=== PATIENT | female | born 1995 | race American Indian/Alaskan Native ===

== ENCOUNTER 2017-02-12 20:01 | Emergency (ER) | payer MEDICAID, OTHER ==
[2017-02-12 20:08] VITALS: BMI 25.8
[2017-02-12 20:24] VITALS: RESP 18; TEMP 98.7; O2SAT 100
--- NOTE | 2017-02-12 20:36 | ED PDOC ---
Arrival/HPI - General Historian: Patient - History of Present Illness Time/Duration: 1 week Symptom Onset: Gradual Symptom Course: Unchanged <Ricardo Quintana - Last Filed: 02/12/17 20:45> <Jeremiah Nuñez - Last Filed: 02/13/17 00:18> - General Chief Complaint: Abdominal Pain Time Seen by Provider: 02/12/17 20:09 - History of Present Illness Narrative History of Present Illness (Text): 02/12/17 20:39 21 year old female with a past medical history that includes sciatica, chronic back pain, presents to the emergency department with lower abdominal pain radiating to the groin for the past week. Patient presents CT scan from done at [facility] which shows 1.5 cm ovarian cyst, otherwise no acute pathology in abdomen/pelvis. Patient also reports dysuria. She states she took Flexeril and Ibuprofen with no improvement. Denies vaginal bleeding or discharge , vomiting, or fever. (Ricardo Quintana) Modifying Factors (Text): Flexril and Ibuprofen with no improvement (Ricardo Quintana) Past Medical History - Provider Review Nursing Documentation Reviewed: Yes - Infectious Disease Hx of Infectious Diseases: None - Tetanus Immunization Tetanus Immunization: Unknown - Pulmonary Hx Asthma: Yes - Musculoskeletal/Rheumatological Hx Back Pain: Yes Other/Comment: Sciatica - Genitourinary/Gynecological Other/Comment: R Ovarian cyst 1.5cm - Psychiatric Hx Depression: No Hx Emotional Abuse: No Hx Physical Abuse: No Hx Substance Use: No - Past Surgical History Past Surgical History: No Previous - Anesthesia Hx Anesthesia: No - Suicidal Assessment Feels Threatened In Home Enviroment: No <Ricardo Quintana - Last Filed: 02/12/17 20:45> Family/Social History - Physician Review Nursing Documentation Reviewed: Yes Family/Social History: Unknown Family HX Smoking Status: Current Some Days Smoker Hx Alcohol Use: Yes Frequency of alcohol use: Socially Hx Substance Use: No Hx Substance Use Treatment: No <Ricardo Quintana - Last Filed: 02/12/17 20:45> Allergies/Home Meds <Ricardo Quintana - Last Filed: 02/12/17 20:45> <Jeremiah Nuñez - Last Filed: 02/13/17 00:18> Allergies/Adverse Reactions: Allergies peanut Allergy (Verified 02/12/17 20:08) ANAPHYLAXIS Home Medications: Home Meds Medication Instructions Recorded Confirmed Albuterol Sulfate [Proair Hfa] 0.09 mg IH 03/02/14 03/02/14 Epinephrine [Epi Ez Pen] 03/02/14 03/02/14 Review of Systems - Physician Review All systems were reviewed & negative as marked: Yes - Review of Systems Gastrointestinal: Abdominal Pain. absent: Vomiting Genitourinary Female: absent: Vaginal Bleeding, Vaginal Discharge <Ricardo Quintana P - Last Filed: 02/12/17 20:45> Physical Exam Vital Signs Reviewed: Yes Temperature: Afebrile Blood Pressure: Normal Pulse: Regular Respiratory Rate: Normal Appearance: Positive for: Well-Appearing, Non-Toxic, Uncomfortable Pain Distress: Mild Mental Status: Positive for: Alert and Oriented X 3 - Systems Exam Head: Present: Atraumatic, Normocephalic Pupils: Present: PERRL Extroacular Muscles: Present: EOMI Conjunctiva: Present: Normal Mouth: Present: Moist Mucous Membranes Neck: Present: Normal Range of Motion Respiratory/Chest: Present: Clear to Auscultation, Good Air Exchange. No: Respiratory Distress, Accessory Muscle Use Cardiovascular: Present: Regular Rate and Rhythm, Normal S1, S2. No: Murmurs Abdomen: Present: Tenderness (Diffuse), Normal Bowel Sounds. No: Distention, Peritoneal Signs Back: Present: Normal Inspection Upper Extremity: Present: Normal Inspection. No: Cyanosis, Edema Lower Extremity: Present: Normal Inspection. No: Edema Neurological: Present: GCS=15, CN II-XII Intact, Speech Normal Skin: Present: Warm, Dry, Normal Color. No: Rashes Psychiatric: Present: Alert, Oriented x 3, Normal Insight, Normal Concentration <Ricardo Quintana - Last Filed: 02/12/17 20:45> Vital Signs Temp Pulse Resp BP Pulse Ox 02/12/17 22:43 66 18 141/79 100 02/12/17 20:02 98.7 F 86 18 135/89 100 Medical Decision Making <Ricardo Quintana P - Last Filed: 02/12/17 20:45> <Jeremiah Nuñez - Last Filed: 02/13/17 00:18> ED Course and Treatment: 02/12/17 23:[address] Quintana, pt with lower abd pain, to f/u US and dc home if negative 02/13/17 00:02 pt refusing US does not want any further testing or w/u in the ER Patient was told that imaging and further workupl is necessary and a full explanation of the reasons why was given, and understood by patient. The risks of leaving were explained and include worsening of condition, and permanent disability and from an undiagnosed or untreated condition. The patient accepts these risks, and is in my judgment is competent and capable of understanding the clinical situation and my explanation of the risks of leaving. Patient was given the opportunity to ask questions and change mind. The patient was instructed regarding the best care for the present symptoms, and to follow up with a physician as soon as possible, or return to the Emergency Department at any time for continuing care. (Jeremiah Nuñez) - Lab Interpretations Lab Results: 02/12/17 21:05 02/12/17 21:05 Lab Results 02/12/17 21:05: WBC 6.5, RBC 4.27, Hgb 13.2, Hct 38.0, MCV 89.0, MCH 30.9, MCHC 34.7, RDW 13.4, Plt Count 240, MPV 10.3, Gran % 46.6 L, Lymph % (Auto) 45.2 H, [place] % (Auto) 6.4 H, Eos % (Auto) 1.5, Baso % (Auto) 0.3, Gran # 3.04, Lymph # 3.0, [place] # 0.4, Eos # 0.1, Baso # 0.02, Sodium 139, Potassium 4.5, Chloride 103 , Carbon Dioxide 27, Anion Gap 14, BUN 10, Creatinine 0.9, Est GFR ( Amer ) > 60, Est GFR (Non-Af Amer) > 60, Random Glucose 87, Calcium 9.9, Total Bilirubin 0.7, AST 30, ALT 33, Alkaline Phosphatase 73, Total Protein 8.2, Albumin 4.5, Globulin 3.7, Albumin/Globulin Ratio 1.2, Lipase 411 H - RAD Interpretation Radiology Orders: 02/12/17 21:07 TRANSVAGINAL [US] Stat - Medication Orders Current Medication Orders: Discontinued Medications Acetaminophen (Tylenol 325mg Tab) 975 mg PO STAT STA Stop: 02/12/17 23:20 Last Admin: 02/13/17 00:00 Dose: Not Given Non-Admin Reason: Patient Refused Sodium Chloride (Sodium Chloride 0.9%) 1,000 mls @ 999 mls/hr IV .Q1H1M STA Stop: 02/12/17 21:44 Last Admin: 02/12/17 21:00 Dose: 999 MLS/HR eMAR Start Stop Document 02/12/17 21:00 OCS (Rec: 02/12/17 21:23 [email or web address] Intravenous Solution Start Date 02/12/17 Start Time 21:23 Ketorolac Tromethamine (Toradol) 10 mg IVP STAT STA Stop: 02/12/17 20:45 Last Admin: 02/12/17 21:00 Dose: 10 MG IVP Administration Document 02/12/17 21:00 OCS (Rec: 02/12/17 21:23 [email or web address] Charges for Administration # of IVP Administrations 1 Ondansetron HCl (Zofran Inj) 4 mg IVP STAT STA Stop: 02/12/17 23:20 Last Admin: 02/13/17 00:00 Dose: Not Given Non-Admin Reason: Patient Refused - Scribe Statement The provider has reviewed the documentation as recorded by the Scribe <Ricardo Quintana - Last Filed: 02/12/17 20:45> <Jeremiah Nuñez - Last Filed: 02/13/17 00:18> - Scribe Statement Juan Manuel Alexandre Provider Scribe Attestation: All medical record entries made by the Scribe were at my direction and personally dictated by me. I have reviewed the chart and agree that the record accurately reflects my personal performance of the history, physical exam, medical decision making, and the department course for this patient. I have also personally directed, reviewed, and agree with the discharge instructions and disposition. (Ricardo Quintana) Disposition/Present on Arrival - Present on Arrival History of DVT/PE: No History of Uncontrolled Diabetes: No Urinary Catheter: No History of Decub. Ulcer: No History Surgical Site Infection Following: None <Ricardo Quintana - Last Filed: 02/12/17 20:45> - Present on Arrival Any Indicators Present on Arrival: No - Disposition Have Diagnosis and Disposition been Completed?: Yes Disposition Time: 00:15 Patient Plan: Discharge <Jeremiah Nuñez - Last Filed: 02/13/17 00:18> - Disposition Diagnosis: Abdominal pain Disposition: AGAINST MEDICAL ADVICE Condition: GUARDED Discharge Instructions (ExitCare): Abdominal Pain (ED), Against Medical Advice (ED) Additional Instructions: PLEASE RETURN TO THE EMERGENCY DEPARTMENT FOR NEW OR WORSENING SYMPTOMS. RETURN RIGHT AWAY IF YOU CANNOT FOLLOW UP WITH YOUR PRIMARY CARE DOCTOR, CLINIC, OR SPECIALIST IN 1-2 DAYS. Referrals: Josh Garcia MD [Primary Care Provider] - Follow up with primary Joi Torres MD [Staff Provider] - Follow up with primary
[2017-02-12] MEDS ORDERED: Sodium Chloride 0.9% 1,000 ML IV STA (20:44)
[2017-02-12 21:15] LABS: ADD MANUAL DIFF? NO
[2017-02-12 21:20] LABS: BASO # 0.02 K/mm3 (0.0-2.0); BASO % 0.3 % (0.0-3.0); EOS # 0.1 (0.0-0.7); EOS % 1.5 % (1.5-5.0); GRAN # 3.04 (1.4-6.5); GRAN % 46.6 % (50.0-68.0); LYMPH % 45.2 % (22.0-35.0); MEAN CORPUSCULAR HEMOGLOBIN 30.9 pg (25.0-35.0); MEAN CORPUSCULAR HGB CONC 34.7 g/dl (31.0-37.0); MEAN PLATELET VOLUME 10.3 fl (7.0-11.0); MONO # 0.4 (0.1-0.6); MONO % 6.4 % (1.0-6.0); PLATELET COUNT 240 10^3/uL (120.0-450.0); RED CELL DISTRIBUTION WIDTH 13.4 % (11.5-14.5); WHITE BLOOD COUNT 6.5 10^3/ul (4.5-11.0)
[2017-02-12 21:31] LABS: ALB/GLOB RATIO 1.2 (1.1-1.8); ALKALINE PHOSPHATASE 73 U/L (38-133); ALT/SGPT 33 U/L (7-56); AST/SGOT 30 U/L (15-39); BILIRUBIN,TOTAL 0.7 mg/dL (0.2-1.3); BLOOD UREA NITROGEN 10 mg/dL (7-21); CALCIUM 9.9 mg/dL (8.4-10.5); CARBON DIOXIDE 27 mmol/L (21-33); CHLORIDE 103 mmol/L (98-107); GFR AFRICAN-AMERICAN > 60; GLUCOSE,RANDOM 87 mg/dL (70-110); LIPASE 411 U/L (23-300); POTASSIUM 4.5 mmol/L (3.6-5.0); SODIUM 139 mmol/L (132-148); TOTAL PROTEIN 8.2 g/dL (5.8-8.3)
[2017-02-12 22:45] VITALS: BP 141/79; PULSE 66
== END 2017-02-13 00:27 | disposition left against medical advice (07) ==
LOC: ED 20:01
DX: R10.9 Unspecified abdominal pain (principal); N83.201 Unspecified ovarian cyst, right side
CPT/HCPCS: 80053; 83690; 85025; 87491; 87591; 96374; 99284; J1885; J7040